=== PATIENT | male | born 1980 | race Caucasian/White ===

== ENCOUNTER 2016-11-23 05:28 | Day surgery (SDC) | payer BC ==
[~2016-11-23] VITALS: Ht 193 cm; Wt 111.1 kg
[2016-11-23 06:15] VITALS: BP 126/76; PULSE 82; TEMP 97.9
[2016-11-23 08:48] VITALS: BP 110/47; PULSE 94; TEMP 97.4
[2016-11-23] MEDS ORDERED: NORCO 325 MG-51 TAB PO (08:58)
[2016-11-23 09:00] VITALS: BP 111/66; PULSE 76
[2016-11-23] MEDS ORDERED: ZOFRAN ODT4 MG PO (09:01)
[2016-11-23 09:15] VITALS: BP 111/61; PULSE 76
[2016-11-23 09:30] VITALS: BP 112/70; PULSE 81
== END 2016-11-23 10:15 | disposition home or self-care (01) ==
LOC: SDCO 05:28
DX: D36.7 Benign neoplasm of other specified sites (principal)
CPT/HCPCS: J0690; J1885; J2704; J3010; J7120